=== PATIENT | female | born 1995 | race Caucasian/White ===

== ENCOUNTER 2024-01-20 08:53 | Inpatient (IN) | payer OTHER ==
[~2024-01-20] VITALS: Ht 160 cm; Wt 73.5 kg
[2024-01-20] VITALS (7 sets, daily range): BP systolic 125–146; BP diastolic 59–86
[2024-01-20] MEDS: LACTATED RINGER'S 1000 ML IV STA (09:29)
[2024-01-20] MEDS ORDERED: METHYLERGONOVINE MALEATE 0.2MG/ML 1ML VIAL IM PRN (09:30)
[2024-01-20] MEDS ORDERED: TRANEXAMIC ACID INJection 1,000 MG in NS 100 ML IV PRN (09:30)
[2024-01-20] MEDS ORDERED: CARBOPROST TROMETHAMINE 250 MCG/ML AMP IM PRN (09:30)
[2024-01-20] MEDS ORDERED: OXYTOCIN INJ 10UNITS/ML 1ML VIAL IM PRN (09:30)
[2024-01-20] MEDS ORDERED: OXYTOCIN DRIP 30 UNITS in IV 1 EA IV PRN (09:30)
[2024-01-20] MEDS ORDERED: ACET325C5 PO (09:33)
[2024-01-20] MEDS ORDERED: UNIS25TA3 PO (09:33)
[2024-01-20] MEDS ORDERED: PRENTAB9 PO (09:33)
[2024-01-20] MEDS ORDERED: HOME MED LIST COMPLETE! XX SCH (09:35)
[2024-01-20 09:59] LABS: HEMATOCRIT 35.7 % (36.0-47.0); HEMOGLOBIN 12.4 g/dl (12.0-15.5); MEAN CORPUSCULAR HEMOGLOBIN 28.8 pg (27.0-33.0); MEAN CORPUSCULAR HGB CONC 34.7 g/dl (32.0-36.5); MEAN CORPUSCULAR VOLUME 82.8 fl (80.0-96.0); PLATELET COUNT, AUTOMATED 243 10^3/uL (150-450); RED BLOOD COUNT 4.31 10^6/uL (4.00-5.40); WHITE BLOOD COUNT 10.7 10^3/uL (4.0-10.0)
[2024-01-20] MEDS: miSOPROStol 50MCG 1/2 TABLET PO SCH (11:05)
[2024-01-20] MEDS: diphenhydrAMINE 50MG CAP PO ONE (19:49)
[2024-01-21] VITALS (15 sets, daily range): BP systolic 111–156; BP diastolic 68–91; O2SAT 96
[2024-01-21] MEDS: BUTORPHANOL 2 MG/ML 1ML VIAL IV ONE (14:18)
[2024-01-21] MEDS: PROMETHAZINE 25MG/ML 1ML VIAL IV ONE (14:18)
[2024-01-21] MEDS: LR 1,000 ML IV SCH ×2 (14:20→21:30)
[2024-01-21] MEDS: ACETAMINOPHEN 500 MG TAB PO ONE (20:51)
[2024-01-21] MEDS: LIDOCAINE 1% MDV 20ML VIAL INFIL PRN (20:51)
[2024-01-21] MEDS: OXYTOCIN DRIP 30 UNITS in IV 1 EA IV PRN (20:54)
[2024-01-21] MEDS ORDERED: IBUPROFEN 600MG TAB PO PRN (21:30)
[2024-01-21] MEDS ORDERED: ONDANSETRON 4MG 2ML VIAL IV PRN (21:30)
[2024-01-21] MEDS ORDERED: METOCLOPRAMIDE INJ 10MG/2ML VIAL IV PRN (21:30)
[2024-01-21] MEDS: OXYTOCIN DRIP 30 UNITS in IV 1 EA IV SCH (21:30)
[2024-01-21] MEDS ORDERED: RHOGAM 300MCG (1500IU) INJ IM SCH (21:30)
[2024-01-21] MEDS ORDERED: DIBUCAINE 1% OINTMENT 30GM TOP PRN (21:30)
[2024-01-21] MEDS ORDERED: ACETAMINOPHEN TAB 650MG DOSE (2X325MG) PO PRN (21:30)
[2024-01-21] MEDS ORDERED: METHYLERGONOVINE MALEATE 0.2MG/ML 1ML VIAL IM PRN (21:30)
[2024-01-22] MEDS: IBUPROFEN 800 MG TAB PO PRN (01:09)
[2024-01-22 06:00] VITALS: BP 118/70; O2SAT 99
[2024-01-22] MEDS: ACETAMINOPHEN 500 MG TAB PO PRN (07:18)
[2024-01-22] MEDS: PRENATAL VITAMINS CHEWABLE TABLET PO SCH (07:19)
[2024-01-22] MEDS ORDERED: PRENATAL VITAMINS CHEWABLE TABLET PO SCH (09:00)
[2024-01-22 18:00] VITALS: BP 128/78; O2SAT 98
[2024-01-23] MEDS: DOCUSATE SODIUM 100MG CAPSULE PO PRN (01:03)
[2024-01-23 06:00] VITALS: BP 114/70; O2SAT 97
[2024-01-23] MEDS: MEASLES,MUMPS,RUBELLA VACCINE INJ (MMR-II) SC.IMMUN ONE (09:00)
[2024-01-23] MEDS ORDERED: IBUP-1022 PO (09:14)
[2024-01-23] MEDS ORDERED: ACET1TAB55 PO (09:14)
[2024-01-23] MEDS ORDERED: COLA100C5 PO (09:14)
[2024-01-23 18:05] VITALS: BP 134/76; O2SAT 100
== END 2024-01-23 19:15 | disposition home or self-care (01) | DRG 807 ==
LOC: M LDI 08:53 → M OBS 01-21 23:01
PROVIDERS: ADMIT Obstetrics & Gynecology; ATTEND Obstetrics & Gynecology
PROC: 3E0P7GC Introduction of Other Therapeutic Substance into Female Reproductive, Via Natural or Artificial Opening (ICD-10-PCS; 2024-01-20)
PROC: 10E0XZZ Delivery of Products of Conception, External Approach (ICD-10-PCS; principal; 2024-01-21)
PROC: 0KQM0ZZ Repair Perineum Muscle, Open Approach (ICD-10-PCS; 2024-01-21)
DX: O48.0 Post-term pregnancy (principal); Z37.0 Single live birth; Z3A.41 41 weeks gestation of pregnancy; O70.1 Second degree perineal laceration during delivery; O13.4 Gestational [pregnancy-induced] hypertension without significant proteinuria, complicating childbirth

== ENCOUNTER 2024-11-28 23:55 | Emergency (ER) | payer OTHER ==
[~2024-11-28] VITALS: Ht 162.6 cm; Wt 63.6 kg
[~2024-11-28 23:55] MED LIST: ACET1TAB55 PO; ACET325C5 PO; COLA100C5 PO; IBUP-1022 PO; PRENTAB9 PO; UNIS25TA3 PO
[2024-11-29 01:05] LABS: BASO % 0.2 % (0.0-1.0); EOS % 0.1 % (0.0-3.0); HEMATOCRIT 42.4 % (36.0-47.0); HEMOGLOBIN 14.3 g/dl (12.0-15.5); LYMPH # 0.5 10^3/uL (1.5-5.0); LYMPH % 3.8 % (24.0-44.0); MEAN CORPUSCULAR HEMOGLOBIN 27.4 pg (27.0-33.0); MEAN CORPUSCULAR HGB CONC 33.7 g/dl (32.0-36.5); MEAN CORPUSCULAR VOLUME 81.2 fl (80.0-96.0); MONO # 0.5 10^3/uL (0.0-0.8); MONO % 3.6 % (2.0-8.0); NEUTROPHILS # 11.8 10^3/uL (1.5-8.5); NEUTROPHILS % 92.1 % (36.0-66.0); PLATELET COUNT, AUTOMATED 265 10^3/uL (150-450); RED BLOOD COUNT 5.22 10^6/uL (4.00-5.40); WHITE BLOOD COUNT 12.9 10^3/uL (4.0-10.0)
[2024-11-29 01:22] LABS: LIPASE 24 U/L (12-53)
[2024-11-29 01:24] LABS: ALBUMIN 3.8 G/DL (3.2-5.2); ALKALINE PHOSPHATASE 75 U/L (35-104); ALT/SGPT 13 U/L (7.0-40); AST/SGOT 13 U/L (<34); BILIRUBIN,DIRECT 0.2 MG/DL (<0.4); BILIRUBIN,TOTAL 0.5 MG/DL (0.3-1.2); BLOOD UREA NITROGEN 26 MG/DL (9-23); CALCIUM LEVEL 9.2 MG/DL (8.5-10.1); CARBON DIOXIDE LEVEL 21 MMOL/L (20-31); CHLORIDE LEVEL 108 MMOL/L (98-107); CREATININE FOR GFR 0.45 MG/DL (0.55-1.30); GLOMERULAR FILTRATION RATE > 60.0 (>60); GLUCOSE, FASTING 131 MG/DL (60-100); POTASSIUM SERUM 4.1 MMOL/L (3.5-5.1); SODIUM LEVEL 140 MMOL/L (136-145)
[2024-11-29 04:47] LABS: APPEARANCE, URINE CLEAR (CLEAR); BACTERIA, URINE AUTO NEGATIVE (NEGATIVE); BILIRUBIN, URINE AUTO NEGATIVE (NEGATIVE); BLOOD, URINE BLOOD NEGATIVE (NEGATIVE); COLOR, URINE YELLOW (YELLOW); GLUCOSE, URINE (UA) AUTO NEGATIVE (NEGATIVE); KETONE, URINE AUTO NEGATIVE (NEGATIVE); LEUKOCYTE ESTERASE, URINE AUTO NEGATIVE (NEGATIVE); MUCUS, URINE SMALL (NEGATIVE); NITRITE, URINE AUTO NEGATIVE (NEGATIVE); PROTEIN, URINE AUTO NEGATIVE (NEGATIVE); RBC, URINE AUTO 5 /HPF (0-3); SQUAMOUS EPITHELIAL CELL UR AU 0 /HPF (0-6); UROBILINOGEN, URINE AUTO 0.2 mg/dL (0.0-2.0); WBC, URINE AUTO 1 /HPF (0-3)
[2024-11-29] MEDS: NS (Normal Saline) 0.9% 1,000 ML IV ONE (05:11)
[2024-11-29 06:25] VITALS: BP 105/57; TEMP 98.4; O2SAT 98
== END 2024-11-29 06:30 | disposition home or self-care (01) ==
LOC: M ED 23:55 → EDBD 23:55 → M ED 11-29 06:30
DX: A09 Infectious gastroenteritis and colitis, unspecified (principal); F10.10 Alcohol abuse, uncomplicated

== ENCOUNTER → 2025-09-27 | Outpatient (CLI) | payer OTHER ==
[~2025-09-27] MED LIST changes: -IBUP-1022 PO; +IBUP600T42 PO
[2025-09-27 14:10] LABS: ESTRADIOL 41.8 PG/ML; LUTEINIZING HORMONE 2.8 mIU/ML
== END ==
LOC: M PLALAB 10:10
PROVIDERS: ATTEND Nurse Practitioner Adult Health
DX: N94.6 Dysmenorrhea, unspecified (principal)

== ENCOUNTER → 2025-10-17 | Outpatient (CLI) | payer OTHER | LOC: M PLALAB 09:36 | PROVIDERS: ATTEND Nurse Practitioner Adult Health | DX: N92.0 Excessive and frequent menstruation with regular cycle (principal); N94.6 Dysmenorrhea, unspecified ==